=== PATIENT | female | born 1995 | race Two or more races ===

== ENCOUNTER 2018-10-09 12:44 | Emergency (ER) | payer MEDICAID ==
[~2018-10-09] VITALS: Ht 170.2 cm; Wt 63.5 kg
[2018-10-09 12:55] VITALS: BP 106/73
[2018-10-09] MEDS ORDERED: IBUPROFEN 800 MG TAB PO ONE (13:30)
== END 2018-10-09 13:44 | disposition home or self-care (01) ==
LOC: ER 13:01
DX: S83.92XA Sprain of unspecified site of left knee, initial encounter (principal); Z88.0 Allergy status to penicillin; X50.0XXA Overexertion from strenuous movement or load, initial encounter; Y93.89 Activity, other specified; Y99.8 Other external cause status; Y92.89 Other specified places as the place of occurrence of the external cause
CPT/HCPCS: 29505; 73562

== ENCOUNTER 2022-02-03 15:46 | Emergency (ER) | payer MEDICAID ==
[~2022-02-03] VITALS: Ht 172.7 cm; Wt 59.0 kg
[2022-02-03] MEDS ORDERED: LIDOCAINE 2%HCL (LOCAL ANESTH.) INJ 20ML MDV ONE (15:57)
[2022-02-03] MEDS ORDERED: LIDOCAINE 2%HCL (LOCAL ANESTH.) INJ 10ml MDV IJ ONE (16:30)
[2022-02-03] MEDS ORDERED: TRAM50TA2 PO (17:29)
[2022-02-03] MEDS ORDERED: DICL50TA2 PO (17:29)
[2022-02-03 17:43] VITALS: BP 108/61
== END 2022-02-03 18:08 | disposition home or self-care (01) ==
LOC: EDUNIT# 15:46 → ER 15:46 → EDBD 15:46 → ER 18:08
DX: S83.005A Unspecified dislocation of left patella, initial encounter (principal); Z88.0 Allergy status to penicillin; W01.0XXA Fall on same level from slipping, tripping and stumbling without subsequent striking against object, initial encounter; Y93.89 Activity, other specified; Y92.89 Other specified places as the place of occurrence of the external cause; Y99.0 Civilian activity done for income or pay
CPT/HCPCS: 27560; 73560